=== PATIENT | female | born 1935 | race Native Hawaiian/Other Pacific Islander ===

== ENCOUNTER 2016-11-12 07:44 | Outpatient (CLI) | payer OTHER | END 2016-11-12 19:29 | disposition home or self-care (01) | LOC: CT 07:44 | DX: I72.8 Aneurysm of other specified arteries (principal); I72.2 Aneurysm of renal artery | CPT/HCPCS: 36415; 82565; 84520 ==

== ENCOUNTER 2019-04-06 13:14 | Outpatient (CLI) | payer OTHER | END 2019-04-06 21:46 | disposition home or self-care (01) | LOC: MAMMO 13:14 | DX: Z12.31 Encounter for screening mammogram for malignant neoplasm of breast (principal) ==

== ENCOUNTER 2020-06-28 08:55 | Outpatient (CLI) | payer OTHER | END 2020-06-28 18:55 | disposition home or self-care (01) | LOC: MAMMO 08:55 | PROVIDERS: ATTEND Internal Medicine | DX: Z12.31 Encounter for screening mammogram for malignant neoplasm of breast (principal) ==

== ENCOUNTER 2021-07-28 13:54 | Outpatient (CLI) | payer OTHER | END 2021-07-28 18:55 | disposition home or self-care (01) | LOC: MAMMO 13:54 | PROVIDERS: ATTEND Internal Medicine | DX: Z12.31 Encounter for screening mammogram for malignant neoplasm of breast (principal) ==

== ENCOUNTER 2023-04-07 09:04 | Outpatient (CLI) | payer OTHER | END 2023-04-07 19:15 | disposition home or self-care (01) | LOC: CT 09:04 | PROVIDERS: ATTEND Internal Medicine | DX: R31.9 Hematuria, unspecified (principal); N39.0 Urinary tract infection, site not specified ==

== ENCOUNTER 2023-04-30 09:16 | Outpatient (CLI) | payer OTHER | END 2023-04-30 18:59 | disposition home or self-care (01) | LOC: MRI 09:16 | PROVIDERS: ATTEND Orthopaedic Surgery | DX: M54.59 Other low back pain (principal); M51.36 Other intervertebral disc degeneration, lumbar region; M51.37 Other intervertebral disc degeneration, lumbosacral region; M48.062 Spinal stenosis, lumbar region with neurogenic claudication ==